=== PATIENT | female | born 1990 | race Caucasian/White ===

== ENCOUNTER 2018-05-16 02:23 | Emergency (ER) | payer SELFPAY ==
[~2018-05-16] VITALS: Ht 167.6 cm; Wt 56.7 kg
[2018-05-16] MEDS ORDERED: TRAZODONE HCL50 MG ORAL (02:28)
--- NOTE | 2018-05-16 02:33 | NUR ---
ED Nurse Note: MANPREET YANG RA 42 from home c/o ETOH 0200, boyfriend call 911 sent to ER. Pt is AO x 3 times, VSS, on room air no distress. Pt is not follow commond well. Mother is on bedside. DORIS seen Pt at bedside.
[2018-05-16 02:50] VITALS: BP 123/64
[2018-05-16 02:55] VITALS: BP 123/64
--- NOTE | 2018-05-16 02:55 | NUR ---
ED Nurse Note: Pt cleared DC by ERMD. Pt is AO x 4times, VSS, on room air no distress. ID band removed. Belongings given to Pt. DC and meds instructions given to Pt, Pt understood well. Pt walked out unit with steady gait with family.
--- NOTE | 2018-05-16 05:38 | Emergency Room Report ---
History of Present Illness General Chief Complaint: Alcohol Intoxication Source: Patient Present Illness HPI 28-year-old female presents ED for evaluation. Brought in by EMS status post alcohol intoxication. Was at home. Boyfriend called 911. Upon arrival patient is awake alert. Admits to alcohol use. Denies drug use. Friend at bedside states that her and patient were drinking all day. Denies drugs. Patient denies any headache. Denies any abdominal pain nausea or vomiting. No other aggravating relieving factors. Denies any other associated symptoms Allergies: Coded Allergies: SULFA (SULFONAMIDE ANTIBIOTICS) (Verified Allergy, Unknown, 05/16/18) Patient History Past Medical History: none Past Surgical History: none Pertinent Family History: none Social History: Reports: alcohol use; Denies: smoking, drug use Last Menstrual Period: 05/12/18 Now: No Immunizations: UTD Reviewed Nursing Documentation: PMH: Agreed; PSxH: Agreed Nursing Documentation-PMH Past Medical History: No History, Except For Hx Gastrointestinal Problems: Yes Review of Systems All Other Systems: negative except mentioned in HPI Physical Exam Vital Signs Date Time Temp Pulse Resp B/P (MAP) Pulse Ox O2 Delivery O2 Flow Rate FiO2 05/16/18 02:22 92 12 123/64 100 Room Air 05/16/18 02:50 97.8 Sp02 EP Interpretation: reviewed, normal General Appearance: no apparent distress, GCS 15, non-toxic, other - intoxicated Head: normocephalic Eyes: bilateral eye normal inspection, bilateral eye PERRL ENT: normal ENT inspection Neck: normal inspection Respiratory: normal inspection Cardiovascular #1: normal inspection Gastrointestinal: normal inspection Rectal: deferred Genitourinary: no CVA tenderness Musculoskeletal: normal inspection Neurologic: other - intoxicated Psychiatric: other - intoxicated Skin: normal inspection Lymphatic: normal inspection Medical Decision Making Diagnostic Impression: Primary Impression: Acute alcoholic intoxication Qualified Codes: F10.929 - Alcohol use, unspecified with intoxication, unspecified ER Course Hospital Course 28-year-old female presents to ED status post EtOH intoxication. Clinical course Patient placed on stretcher. Given that patient is able to provide an adequate history, I see no need to check blood work or place an IV. Mother and friend at bedside. Friend states that patient was drinking with her all day. No drug use. My assessment shows no evidence of SI/HI requiring psychiatric evaluation. Family at bedside to take patient home. Safe for discharge with close outpatient follow-up. states she has a PMD Diagnosis - ETOH intoxication stable and discharged to home. Followup with PMD. Return to ED if symptoms recur or worsen Last Vital Signs Date Time Temp Pulse Resp B/P (MAP) Pulse Ox O2 Delivery O2 Flow Rate FiO2 05/16/18 02:55 97.8 88 12 123/64 100 Room Air Status: improved Disposition: HOME, SELF-CARE Condition: Stable Referrals: NON PHYSICIAN (PCP) Patient Instructions: Alcohol Intoxication Jay Joseph MD May 16, 2018 05:38
== END 2018-05-16 03:00 | disposition home or self-care (01) ==
LOC: EDSEX 02:23 → EDBD 02:23 → EMR 02:41
DX: F10.129 Alcohol abuse with intoxication, unspecified (principal); Z88.2 Allergy status to sulfonamides
CPT/HCPCS: 99283